=== PATIENT | female | born 1990 ===

== ENCOUNTER 2017-02-17 19:37 | Emergency (ER) | payer OTHER ==
[2017-02-17 20:07] VITALS: BP 155/60; PULSE 98; RESP 18; TEMP 99.4; O2SAT 97
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
--- NOTE | 2017-02-18 17:33 | RAD ---
PROCEDURE: Left Hip X-ray Radiographs. HISTORY: left hip COMPARISON: Comparison is made to the previous CT of the abdomen and pelvis dated 10/07/2015 FINDINGS: BONES: Again seen art severe deformity at both hips. 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 JOINTS: There are severe osteoarthritic changes at the right hip joint associated with severe narrowing of the joint space. There is also moderate to severe narrowing of the joint space in the left hip. SOFT TISSUES: Normal. OTHER FINDINGS: None. IMPRESSION: Severe bilateral coxa vara deformity. Severe deformity of the right femoral head. Advanced secondary osteoarthritis at the right hip and [id number] secondary osteoarthritic changes at the left hip joint
== END 2017-02-17 23:36 | disposition home or self-care (01) ==
LOC: H.ER 19:37
DX: M54.2 Cervicalgia (principal); S73.102A Unspecified sprain of left hip, initial encounter; S09.90XA Unspecified injury of head, initial encounter; V49.59XA Passenger injured in collision with other motor vehicles in traffic accident, initial encounter; Y92.410 Unspecified street and highway as the place of occurrence of the external cause

== ENCOUNTER 2017-04-15 06:49 | Observation (INO) | payer OTHER ==
[2017-04-15 06:59] VITALS: BP 120/66; RESP 16; TEMP 98; O2SAT 98
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
[2017-04-15 08:11] LABS: BASO # 0.1 K/uL (0.0-0.2); BASO % 0.7 % (0.0-2.0); EOS # 0.1 K/uL (0.0-0.7); EOS % 1.2 % (0.0-4.0); HEMOGLOBIN 16.2 g/dL (12.0-16.0); LYMPH # 2.1 K/uL (1.0-4.3); LYMPH % 25.4 % (20.0-40.0); MEAN CELL VOLUME 81.1 fl (81.0-99.0); MEAN CORPUSCULAR HEMOGLOBIN 28.2 pg (27.0-31.0); MEAN CORPUSCULAR HGB CONC 34.7 g/dL (33.0-37.0); MEAN PLATELET VOLUME 8.4 fl (7.2-11.7); MONO # 0.6 K/uL (0.0-0.8); MONO % 7.4 % (0.0-10.0); NEUT # 5.3 K/uL (1.8-7.0); NEUT % 65.3 % (50.0-75.0); NRBC % 0.3 % (0.0-0.0); RBC 5.74 Mil/uL (3.80-5.20); RED CELL DISTRIBUTION WIDTH 14.1 % (11.5-14.5); WHITE BLOOD COUNT 8.1 K/uL (4.8-10.8)
[2017-04-15 08:20] LABS: BLOOD UREA NITROGEN 12 mg/dl (7-17); CALCIUM 10.4 mg/dL (8.4-10.2); GFR AFRICAN-AMERICAN > 60; GFR NON-AFRICAN AMERICAN > 60
[2017-04-15] MEDS ORDERED: Sodium Chloride 0.9% 1,000 ML IV STA (08:32)
--- NOTE | 2017-04-15 10:22 | RAD ---
HISTORY: chest pain COMPARISON: 02/06/2015. TECHNIQUE: Chest PA and lateral FINDINGS: LUNGS: Re- demonstrated is a 6.7 mm granuloma right upper lobe. . Persistent elevation right hemidiaphragm could be due to eventration. No active disease. No acute infiltrates seen PLEURA: No significant pleural effusion identified. No pneumothorax apparent. CARDIOVASCULAR: Normal. OSSEOUS STRUCTURES: No significant abnormalities. VISUALIZED UPPER ABDOMEN: Normal. OTHER FINDINGS: None. IMPRESSION: No active disease or acute infiltrates. Calcified granuloma right upper lobe again noted
[2017-04-15] MEDS ORDERED: Sodium Chloride 0.9% 50 ML IV ONE (10:49)
[2017-04-15] MEDS ORDERED: Iodixanol 320 MG/ML 100 ML BOTTLE IV ONE (10:49)
--- NOTE | 2017-04-15 11:54 | CT ---
PROCEDURE: CT Chest with contrast (Pulmonary Angiogram) HISTORY: chest pain COMPARISON: No prior study available for comparison however correlation made with concurrent chest radiograph. Comparison also made with CT scan abdomen pelvis 10/07/2015 which imaged both lung bases. TECHNIQUE: Axial computed tomography images were obtained of the chest in the pulmonary arterial phase of enhancement. Coronal and sagittal reformatted images were created and reviewed. Intravenous contrast dose: 90 cc Visipaque 320 contrast material Radiation dose: Total exam DLP = 386.49 mGy-cm. This CT exam was performed using one or more of the following dose reduction techniques: Automated exposure control, adjustment of the mA and/or kV according to patient size, and/or use of iterative reconstruction technique. FINDINGS: PULMONARY ARTERIES: Study is limited due to suboptimal opacification of the pulmonary arteries and large body habitus. . Visualized pulmonary trunk, lobar, segmental and proximal subsegmental branches of the pulmonary arteries appear relatively well opacified. No definitive filling defects seen to suggest acute central pulmonary embolus. Pulmonary trunk measures approximately 2.78 cm. AORTA: No acute findings. No thoracic aortic aneurysm. Ascending thoracic aorta measures approximately 3.1 cm and descending thoracic aorta measures approximate 1.9 cm. LUNGS: Re- demonstrated is a 6.2 mm calcified granuloma right upper lobe. No acute consolidation. PLEURAL SPACES: Unremarkable. No effusion or pneuomothorax. Marked elevation right hemidiaphragm likely due to eventration. HEART: Unremarkable. No cardiomegaly. No significant pericardial effusion no. LYMPH NODES: No lymphadenopathy. BONES, CHEST WALL: Unremarkable. Minor multilevel degenerative spondylosis of the thoracic spine. OTHER FINDINGS: Small hiatal hernia. . Marked on hepatomegaly less well seen on this study compared the prior CT scan of the abdomen and pelvis. IMPRESSION: Limited study described. No evidence of acute central pulmonary embolus. No infiltrates. Stable calcified granuloma right upper lobe. Elevation right hemidiaphragm likely due to eventration. Hepatomegaly.
[2017-04-15 14:21] VITALS: PULSE 75
--- NOTE | 2017-04-16 12:08 | CARD ---
APPROVED REPORT EKG Measurement Heart [id number] <Conclusion> Normal sinus rhythm Normal ECG
== END 2017-04-15 14:02 | disposition home or self-care (01) ==
LOC: H.ER 06:49 → H.EROBSV 10:11
PROVIDERS: ADMIT Emergency Medicine; ATTEND Emergency Medicine
DX: R07.9 Chest pain, unspecified (principal); E11.40 Type 2 diabetes mellitus with diabetic neuropathy, unspecified; I10 Essential (primary) hypertension; Z82.49 Family history of ischemic heart disease and other diseases of the circulatory system

== ENCOUNTER 2017-08-19 01:34 | Emergency (ER) | payer SELFPAY ==
[2017-08-19 02:15] VITALS: RESP 18
[2017-08-19 02:20] VITALS: BP 147/71; PULSE 87; TEMP 99; O2SAT 98
[2017-08-19] MEDS ORDERED: Sodium Chloride 0.9% 1,000 ML IV STA (02:26)
--- NOTE | 2017-08-19 02:43 | ED PDOC ---
HPI: Abdomen Time Seen by Provider: 08/19/17 02:21 Chief Complaint (Nursing): Lower Extremity Problem/Injury Chief Complaint (Provider): abdominal pain History Per: Patient History/Exam Limitations: no limitations Onset/Duration Of Symptoms: Days (x3) Current Symptoms Are (Timing): Still Present Additional Complaint(s): 27 year old obese female who presents to the emergency department with a complaint of on and off RUQ pain associated with hard stools and nausea ongoing for 3 days. Patient stated that abdominal pain is exasperated after eating and drinking. Denied any fever, chills, vomiting, difficulty urinating or bloody urine. PMD: Yoko Noyola MD Past Medical History Reviewed: Historical Data, Nursing Documentation, Vital Signs Vital Signs: Last Vital Signs Temp 99.0 F 08/19/17 02:06 Pulse 87 08/19/17 02:06 Resp 18 08/19/17 02:06 BP 147/71 08/19/17 02:06 Pulse Ox 98 08/19/17 04:40 - Medical History PMH: Anxiety, Arthritis, Depression, Diabetes, HTN - Surgical History Surgical History: - Family History Family History: States: Unknown Family Hx - Social History Current smoker - smoking cessation education provided: No Alcohol: Occasional - Home Medications Home Medications: Ambulatory Orders Medication Instructions Recorded Dicyclomine [Bentyl] 20 mg PO Q12 PRN #20 tab 10/07/15 Escitalopram Oxalate [Lexapro] 10/07/15 Gabapentin [Gabapentin] 1 tab PO BID 10/07/15 Insulin Glargine, Recombina 40 units SQ HS 10/07/15 [Lantus] Insulin Lispro [Humalog] SQ ACHS 10/07/15 Metronidazole [Flagyl] 250 mg PO BID #14 tablet 10/07/15 Ondansetron ODT [Zofran ODT] 4 mg PO Q6H PRN #16 odt 10/07/15 Ibuprofen [Motrin] 400 mg PO Q6 #30 tab 04/28/16 Cephalexin [Keflex] 500 mg PO Q6 #27 capsule 08/18/16 Cyclobenzaprine [Flexeril] 5 mg PO TID #6 tab 04/15/17 Ibuprofen [Motrin] 600 mg PO Q6 #20 tab 04/15/17 Famotidine [Pepcid] 20 mg PO BID #20 tab 12/22/17 Nitrofurantoin Macrocrystals 100 mg PO BID 5 Days cap 08/19/17 [Macrobid] Omeprazole 20 mg PO DAILY #30 capsule. 08/19/17 - Allergies Allergies/Adverse Reactions: Allergies Allergy/AdvReac Type Severity Reaction Status Date / Time No Known Allergies Allergy Verified 08/19/17 02:06 Review of Systems ROS Statement: Except As Marked, All Systems Reviewed And Found Negative Constitutional: Negative for: Fever, Chills Gastrointestinal: Positive for: Nausea, Abdominal Pain (RUQ), Other (hard stools ). Negative for: Vomiting Genitourinary Female: Negative for: Dysuria, Hematuria Physical Exam - Reviewed Nursing Documentation Reviewed: Yes Vital Signs Reviewed: Yes - Physical Exam Appears: Positive for: Well (but obese), Non-toxic, No Acute Distress Head Exam: Positive for: ATRAUMATIC, NORMAL INSPECTION, NORMOCEPHALIC Skin: Positive for: Normal Color Eye Exam: Positive for: Normal appearance ENT: Positive for: Normal ENT Inspection Neck: Positive for: Normal, Painless ROM Cardiovascular/Chest: Positive for: Regular Rate, Rhythm, Chest Non Tender Respiratory: Positive for: Normal Breath Sounds. Negative for: Decreased Breath Sounds, Respiratory Distress Gastrointestinal/Abdominal: Positive for: Soft, Tenderness (RUQ mildy; neg for Robert's sign). Negative for: Normal Exam Neurologic/Psych: Positive for: Alert (x3), Oriented - Laboratory Results Result Diagrams: 08/19/17 02:54 08/19/17 02:54 - ECG O2 Sat by Pulse Oximetry: 98 (RA) Pulse Ox Interpretation: Normal Medical Decision Making Medical Decision Making: Initial Impression: Gallstones vs. colitis vs. appendicitis vs. constipation Initial Plan: * CT ABD/pelvis with IV contrast * CMP * Lipase * Urine * CBC * NS 1,000ml IV per 1,000mls/hr * Reeglan 10mg IVPB * Toradol 30mg IVP * Urinalysis ____ Time: 434 --CT ABD/pelvis FINDINGS: Lower thorax: No acute findings. ABDOMEN: Liver: Unremarkable. No mass. Gallbladder and bile ducts: Unremarkable. No calcified stones. No ductal dilation. Pancreas: Unremarkable. No mass. No ductal dilation. Spleen: Unremarkable. No splenomegaly. Adrenals: Unremarkable. No mass. Kidneys and ureters: Unremarkable. No solid mass. No hydronephrosis. Stomach and bowel: Unremarkable. No obstruction. No mucosal thickening. Appendix: A normal appendix is identified. PELVIS: Bladder: Unremarkable. No mass. Reproductive: Unremarkable as visualized. ABDOMEN and PELVIS: Intraperitoneal space: Unremarkable. No free air. No significant fluid collection. Bones/joints: No acute fracture. No dislocation. Marked deformity of both hips bilaterally with degenerative changes. Soft tissues: Unremarkable. Vasculature: Unremarkable. No abdominal aortic aneurysm. Lymph nodes: Unremarkable. No enlarged lymph nodes. IMPRESSION: No acute findings. Pt. is feeling better, results provided. Told to berenice vargas/ Barbara Noyola next week for checkup, return precautions discussed. Scribe Attestation: Documented by Maria A Yang, acting as a scribe for Clyde Aceves MD. Provider Scribe Attestation: All medical record entries made by the Scribe were at my direction and personally dictated by me. I have reviewed the chart and agree that the record accurately reflects my personal performance of the history, physical exam, medical decision making, and the department course for this patient. I have also personally directed, reviewed, and agree with the discharge instructions and disposition. Disposition - Clinical Impression Clinical Impression: UTI (urinary tract infection), Abdominal pain - Patient ED Disposition Is Patient to be Admitted: No Counseled Patient/Family Regarding: Studies Performed, Diagnosis, Need For Followup, Rx Given - Disposition Referrals: [place],Yoko Nilsa, [employer] [Primary Care Provider] - Disposition: Routine/Home Disposition Time: 04:40 Condition: IMPROVED Prescriptions: Famotidine [Pepcid] 20 mg PO BID #20 tab Nitrofurantoin Macrocrystals [Macrobid] 100 mg PO BID 5 Days cap Omeprazole 20 mg PO DAILY #30 capsule.dr Instructions: Urinary Tract Infection in Women (ED), Acute Abdominal Pain (ED) Forms: [email or web address] (Korean)
[2017-08-19 03:09] LABS: BASO % 0.6 % (0.0-2.0); EOS # 0.1 K/uL (0.0-0.7); EOS % 1.6 % (0.0-4.0); HEMATOCRIT 41.2 % (34.0-47.0); LYMPH # 2.9 K/uL (1.0-4.3); LYMPH % 34.6 % (20.0-40.0); MEAN CELL VOLUME 82.1 fl (81.0-99.0); MEAN CORPUSCULAR HEMOGLOBIN 27.6 pg (27.0-31.0); MEAN CORPUSCULAR HGB CONC 33.6 g/dL (33.0-37.0); MEAN PLATELET VOLUME 8.1 fl (7.2-11.7); MONO # 0.7 K/uL (0.0-0.8); MONO % 8.7 % (0.0-10.0); NEUT # 4.5 K/uL (1.8-7.0); NEUT % 54.5 % (50.0-75.0); NRBC % 0.1 % (0.0-0.0); RED CELL DISTRIBUTION WIDTH 13.9 % (11.5-14.5); WHITE BLOOD COUNT 8.3 K/uL (4.8-10.8)
[2017-08-19 03:25] LABS: ALB/GLOB RATIO 1.2 (1.0-2.1); ALKALINE PHOSPHATASE 146 U/L (38-126); ALT/SGPT 78 U/L (9-52); AST/SGOT 39 U/L (14-36); BLOOD UREA NITROGEN 14 mg/dl (7-17); CALCIUM 9.4 mg/dL (8.4-10.2); CARBON DIOXIDE 26 mmol/L (22-30); CHLORIDE 100 mmol/L (98-107); GFR AFRICAN-AMERICAN > 60; GLUCOSE,RANDOM 255 mg/dL (65-105); LIPASE 111 U/L (23-300); POTASSIUM 3.6 MMOL/L (3.6-5.0); SODIUM 141 mmol/l (132-148); TOTAL PROTEIN 8.2 G/DL (6.3-8.2)
[2017-08-19 03:41] LABS: URINE COLOR YELLOW (YELLOW)
[2017-08-19 03:42] LABS: RBC URINE 2 /hpf (0-3); URINE BILIRUBIN NEGATIVE (NEGATIVE); URINE BLOOD NEGATIVE (NEGATIVE); URINE GLUCOSE (UA) NEGATIVE (Normal); URINE KETONE NEGATIVE (NEGATIVE); URINE LEUKOCYTE ESTERASE NEGATIVE Leu/uL (Negative); URINE PROTEIN 30 mg/dL (NEGATIVE); URINE UROBILINOGEN 0.2 mg/dL (0.2-1.0); WBC URINE 10 /hpf (0-5)
[2017-08-19 03:43] LABS: URINE BACTERIA FEW (<OCC)
[2017-08-19] MEDS ORDERED: Iohexol 300 100 ML IJ ONE (03:44)
--- NOTE | 2017-08-19 11:50 | CT ---
PROCEDURE: CT Abdomen and Pelvis with contrast HISTORY: RUQ pain, nausea COMPARISON: 10/07/2015 TECHNIQUE: Contrast dose: 95 mL Omnipaque 300 Radiation dose: Total exam DLP = 1028.51 mGy-cm. This CT exam was performed using one or more of the following dose reduction techniques: Automated exposure control, adjustment of the mA and/or kV according to patient size, and/or use of iterative reconstruction technique. FINDINGS: LOWER THORAX: Unremarkable. LIVER: Hepatomegaly. The liver measures 22.7 cm craniocaudal. Smooth contour. No mass. No biliary dilatation. GALLBLADDER AND BILE DUCTS: Unremarkable. PANCREAS: Unremarkable. No gross lesion or ductal dilatation. SPLEEN: Unremarkable. ADRENALS: Unremarkable. No mass. KIDNEYS AND URETERS: Unremarkable. No hydronephrosis. No solid mass. VASCULATURE: Unremarkable. No aortic aneurysm. BOWEL: Sigmoid diverticulosis without evidence of diverticulitis. Mural thickening previously appreciated in a segment of sigmoid colon on examination of 10/07/2015 is inadequately evaluated in the absence of oral contrast opacification. There is circumferential mural thickening of a segment of jejunum consistent with nonspecific enteritis. There is no bowel obstruction. APPENDIX: Normal appendix. PERITONEUM: Unremarkable. No free fluid. No free air. LYMPH NODES: Unremarkable. No enlarged lymph nodes. BLADDER: Nondistended REPRODUCTIVE: Normal uterus BONES: Severe osteoarthritis of right hip with deformity of humeral head and remodeling of acetabulum. Osteoarthritis of left hip. Possible left coxa vara deformity. No acute fracture. OTHER FINDINGS: None. IMPRESSION: Findings consistent with nonspecific enteritis involving proximal jejunum. No evidence of diverticulitis. Sigmoid diverticulosis. No evidence of appendicitis. Hepatomegaly. Additional nonacute findings as above.
== END 2017-08-19 05:10 | disposition home or self-care (01) ==
LOC: H.ER 01:34
DX: N39.0 Urinary tract infection, site not specified (principal); R10.11 Right upper quadrant pain; E11.9 Type 2 diabetes mellitus without complications; F32.9 Major depressive disorder, single episode, unspecified; F41.9 Anxiety disorder, unspecified; I10 Essential (primary) hypertension; Z79.4 Long term (current) use of insulin
CPT/HCPCS: 74177; 80053; 81003; 81025; 83690; 85025; 96374; 99284; J1885; J2765; J7040; Q9967

== ENCOUNTER 2018-04-09 03:26 | Emergency (ER) | payer SELFPAY ==
[2018-04-09 03:46] VITALS: RESP 18
--- NOTE | 2018-04-09 04:11 | ED PDOC ---
HPI: Chest Pain Time Seen by Provider: 04/09/18 03:40 Chief Complaint (Nursing): Chest Pain Chief Complaint (Provider): Chest pain History Per: Patient History/Exam Limitations: no limitations Onset/Duration Of Symptoms: Days Current Symptoms Are (Timing): Still Present Context: Other (Anxiety) Severity: Moderate Quality: "Pain" Associated Symptoms: Nausea, Other (SOB, Hand numbness, diarrhea) Modifying Factors: None Exacerbating Factors: None Additional History Per: Patient Additional Complaint(s): 28 y/o with Hx of IDDM, hTN and anxiety presents with c/o CP for 3 days that comes and goes and is retrosternal. Since 11 pm last night it got worse and has been associated with mild SOB, 4 episodes of NBNM diarrhea and b/L finger numbness. Patient states thast she has been feeling very anxious recently because her father had a heart attack 1 week ago. She states that she has been using her meds as prescribed including insulin Past Medical History Vital Signs: Last Vital Signs Temp 98.0 F 04/09/18 03:30 Pulse 81 04/09/18 03:30 Resp 18 04/09/18 03:30 BP 158/85 H 04/09/18 03:30 Pulse Ox 99 04/09/18 04:16 - Medical History PMH: Anxiety, Arthritis, Depression, Diabetes, HTN - Surgical History Surgical History: - Family History Family History: States: Unknown Family Hx - Social History Drugs: Denies - Home Medications Home Medications: Ambulatory Orders Medication Instructions Recorded Dicyclomine [Bentyl] 20 mg PO Q12 PRN #20 tab 10/07/15 Escitalopram Oxalate [Lexapro] 10/07/15 Gabapentin [Gabapentin] 1 tab PO BID 10/07/15 Insulin Glargine, Recombina 40 units SQ HS 10/07/15 [Lantus] Insulin Lispro [Humalog] SQ ACHS 10/07/15 Metronidazole [Flagyl] 250 mg PO BID #14 tablet 10/07/15 Ondansetron ODT [Zofran ODT] 4 mg PO Q6H PRN #16 odt 10/07/15 Ibuprofen [Motrin] 400 mg PO Q6 #30 tab 04/28/16 Cephalexin [Keflex] 500 mg PO Q6 #27 capsule 08/18/16 Cyclobenzaprine [Flexeril] 5 mg PO TID #6 tab 04/15/17 Ibuprofen [Motrin] 600 mg PO Q6 #20 tab 04/15/17 Famotidine [Pepcid] 20 mg PO BID #20 tab 08/19/17 Nitrofurantoin Macrocrystals 100 mg PO BID 5 Days cap 08/19/17 [Macrobid] Omeprazole 20 mg PO DAILY #30 capsule. 08/19/17 Ondansetron ODT [Zofran ODT] 4 mg PO Q6 PRN #8 odt 04/09/18 - Allergies Allergies/Adverse Reactions: Allergies Allergy/AdvReac Type Severity Reaction Status Date / Time No Known Allergies Allergy Verified 04/09/18 03:40 KIRK Risk Score for UA/NSTEMI - KIRK Risk Score Age > 64: NO 3 or more CAD Risk Factors: NO Known CAD (Stenosis greater than 50%): NO Aspirin use in past 7 days: NO Severe Angina: NO EKG ST changes greater than 0.5mm: NO Positive Cardiac Marker: NO KIRK Score: 0 Risk %: 5% Review of Systems ROS Statement: Except As Marked, All Systems Reviewed And Found Negative Cardiovascular: Positive for: Chest Pain Respiratory: Positive for: Shortness of Breath Gastrointestinal: Positive for: Nausea Neurological: Positive for: Numbness Psych: Positive for: Anxiety Physical Exam - Physical Exam Appears: Positive for: Non-toxic, No Acute Distress Skin: Positive for: Warm. Negative for: Normal Color (Acantosis nigricans lesions) Eye Exam: Positive for: EOMI Cardiovascular/Chest: Positive for: Regular Rate, Rhythm. Negative for: Gallop , Murmur Respiratory: Positive for: Normal Breath Sounds. Negative for: Decreased Breath Sounds, Crackles, Rales, Rhonchi, Wheezing, Respiratory Distress Gastrointestinal/Abdominal: Positive for: Soft, Tenderness (mild epigastric). Negative for: Distended, Guarding, Rebound Extremity: Positive for: Normal ROM, Capillary Refill (<3). Negative for: Pedal Edema Neurologic/Psych: Positive for: Alert, Oriented. Negative for: Motor/Sensory Deficits, Aphasia, Facial Droop - Laboratory Results Result Diagrams: 04/09/18 04:48 04/09/18 04:48 - ECG O2 Sat by Pulse Oximetry: 99 - Progress ED Course And Treament: Patient received Pepcid, Zofran and CBC, BMP, trop were ordered Labs came back unremarkable Patient c/o persistent pain but associated symptoms resolved. Toradol 30 mg IV given Patient revaluated and remained stable during her ER stay. Kirk score 0 Unlikely cardiac Poss anxiety Stable to DC home and F/U as outpatient ER precautions given Medical Decision Making Medical Decision Makin28 y/o F with Hx of IDDM, HTN and anxiety presents with c/o CP Atypical Chest pain with nausea Poss anxiety VS stable. EKG sinus rhythm Tropx1 CBC BMP Pepcid IV once Zofran IV once Numbness B/L hands poss anxiety Udip Disposition - Clinical Impression Clinical Impression: Atypical chest pain - Disposition Disposition Time: 06:50 Condition: STABLE Prescriptions: Ondansetron ODT [Zofran ODT] 4 mg PO Q6 PRN #8 odt PRN Reason: Nausea/Vomiting Instructions: Chest Pain That Is Not Caused by the Heart (DC) Forms: [employer] (Tuvaluan)
[2018-04-09 04:53] LABS: BASO # 0.1 K/uL (0.0-0.2); EOS # 0.2 K/uL (0.0-0.7); EOS % 2.2 % (0.0-4.0); HEMOGLOBIN 13.9 g/dL (12.0-16.0); LYMPH # 2.6 K/uL (1.0-4.3); LYMPH % 35.1 % (20.0-40.0); MEAN CELL VOLUME 81.6 fl (81.0-99.0); MEAN CORPUSCULAR HEMOGLOBIN 27.4 pg (27.0-31.0); MEAN CORPUSCULAR HGB CONC 33.6 g/dL (33.0-37.0); MONO # 0.6 K/uL (0.0-0.8); MONO % 8.1 % (0.0-10.0); NEUT % 53.6 % (50.0-75.0); NRBC % 0.1 % (0.0-0.0); RBC 5.07 Mil/uL (3.80-5.20); RED CELL DISTRIBUTION WIDTH 14.1 % (11.5-14.5); WHITE BLOOD COUNT 7.5 K/uL (4.8-10.8)
[2018-04-09 05:02] LABS: CALCIUM 9.2 mg/dL (8.4-10.2); GFR AFRICAN-AMERICAN > 60; GFR NON-AFRICAN AMERICAN > 60
[2018-04-09 05:16] LABS: BLOOD UREA NITROGEN 12 mg/dl (7-17)
[2018-04-09 06:57] VITALS: BP 142/80; PULSE 82; TEMP 98.2; O2SAT 100
== END 2018-04-09 06:55 | disposition home or self-care (01) ==
LOC: H.ER 03:26
DX: R07.89 Other chest pain (principal); E11.9 Type 2 diabetes mellitus without complications; Z79.4 Long term (current) use of insulin; F32.9 Major depressive disorder, single episode, unspecified; F41.9 Anxiety disorder, unspecified; I10 Essential (primary) hypertension
CPT/HCPCS: 80048; 84484; 85025; 96374; 96375; 99284; J2405

== ENCOUNTER 2018-07-24 04:12 | Emergency (ER) | payer MEDICAID ==
[2018-07-24 04:33] VITALS: RESP 16
[2018-07-24] MEDS ORDERED: Iohexol 240 (50 ml) PO ONE (04:59)
[2018-07-24] MEDS ORDERED: Sodium Chloride 0.9% 1,000 ML IV STA (04:59)
[2018-07-24] MEDS ORDERED: Morphine 4 MG/ML VIAL IV ONE (04:59)
--- NOTE | 2018-07-24 05:29 | ED PDOC ---
HPI: Abdomen Time Seen by Provider: 07/24/18 04:32 Chief Complaint (Nursing): Abdominal Pain Chief Complaint (Provider): Abdominal Pain History Per: Patient History/Exam Limitations: no limitations Onset/Duration Of Symptoms: Hrs (x 4) Current Symptoms Are (Timing): Still Present Location Of Pain/Discomfort: RUQ, RLQ Quality Of Discomfort: "Pain" Associated Symptoms: Back Pain Additional Complaint(s): 28 year old female with a history of diabetes and hypertension presents to the ED with right sided abdominal pain radiating to her right flank for 4 hours. Patient reports that pain is so severe that it jolted her out of her sleep. It is associated with sweats, nausea, diarrhea and loss of appetite. She took no medications for pain prior to arrival. Denies fever, vomiting and other medical complaints. PMD: Dr. Noyola Past Medical History Reviewed: Historical Data, Nursing Documentation, Vital Signs Vital Signs: Last Vital Signs Temp 98.4 F 07/24/18 04:28 Pulse 99 H 07/24/18 04:28 Resp 16 07/24/18 04:28 BP 134/92 H 07/24/18 04:28 Pulse Ox 98 07/24/18 04:28 - Medical History PMH: Anxiety, Arthritis, Depression, Diabetes, HTN - Surgical History Surgical History: - Family History Family History: States: Unknown Family Hx - Social History Current smoker - smoking cessation education provided: No Alcohol: None Drugs: Denies - Home Medications Home Medications: Ambulatory Orders Medication Instructions Recorded Dicyclomine [Bentyl] 20 mg PO Q12 PRN #20 tab 10/07/15 Escitalopram Oxalate [Lexapro] 10/07/15 Gabapentin 1 tab PO BID 10/07/15 Insulin Glargine, Recombina 40 units SQ HS 10/07/15 [Lantus] Insulin Lispro [Humalog] SQ ACHS 10/07/15 Metronidazole [Flagyl] 250 mg PO BID #14 tablet 10/07/15 Ondansetron ODT [Zofran ODT] 4 mg PO Q6H PRN #16 odt 10/07/15 Ibuprofen [Motrin] 400 mg PO Q6 #30 tab 04/28/16 Cephalexin [Keflex] 500 mg PO Q6 #27 capsule 08/18/16 Cyclobenzaprine [Flexeril] 5 mg PO TID #6 tab 04/15/17 Ibuprofen [Motrin] 600 mg PO Q6 #20 tab 04/15/17 Famotidine [Pepcid] 20 mg PO BID #20 tab 08/19/17 Nitrofurantoin Macrocrystals 100 mg PO BID 5 Days cap 08/19/17 [Macrobid] RX: Omeprazole 20 mg PO DAILY #30 capsule. 08/19/17 Ondansetron ODT [Zofran ODT] 4 mg PO Q6 PRN #8 odt 04/09/18 - Allergies Allergies/Adverse Reactions: Allergies Allergy/AdvReac Type Severity Reaction Status Date / Time No Known Allergies Allergy Verified 07/24/18 04:28 Review of Systems ROS Statement: Except As Marked, All Systems Reviewed And Found Negative Constitutional: Positive for: Sweats Gastrointestinal: Positive for: Nausea, Abdominal Pain. Negative for: Vomiting, Diarrhea Musculoskeletal: Positive for: Back Pain Physical Exam - Reviewed Nursing Documentation Reviewed: Yes Vital Signs Reviewed: Yes - Physical Exam Appears: Positive for: Non-toxic, No Acute Distress Head Exam: Positive for: ATRAUMATIC, NORMAL INSPECTION, NORMOCEPHALIC Skin: Positive for: Normal Color, Warm, Dry Eye Exam: Positive for: EOMI, Normal appearance, PERRL ENT: Positive for: Normal ENT Inspection Neck: Positive for: Normal, Painless ROM, Supple Cardiovascular/Chest: Positive for: Regular Rate, Rhythm. Negative for: Murmur Respiratory: Positive for: Normal Breath Sounds. Negative for: Respiratory Distress Gastrointestinal/Abdominal: Positive for: Soft (otherwise), Tenderness (RUQ and right flank tenderness) Extremity: Positive for: Normal ROM. Negative for: Deformity Neurologic/Psych: Positive for: Alert, Oriented. Negative for: Motor/Sensory Deficits - ECG O2 Sat by Pulse Oximetry: 98 (RA) Pulse Ox Interpretation: Normal Medical Decision Making Medical Decision Makin:59 Initial Plan: abdominal pain rule out cholecystitis, appendicitis, electrolyte abnormality, uti --CT Abd & Pelvis w contrast --Omnipaque 50 ml PO --CMP --CBC --Morphine 4 mg IV --NS IV --Zofran Inj 4 mg IVP --Urine dip --UA --Urine cx [address] shirley pending workup Scribe Attestation: Documented by Karie Wong, acting as a scribe for Blair Garcia MD Provider Scribe Attestation: All medical record entries made by the Scribe were at my direction and personally dictated by me. I have reviewed the chart and agree that the record accurately reflects my personal performance of the history, physical exam, medical decision making, and the department course for this patient. I have also personally directed, reviewed, and agree with the discharge instructions and disposition. Disposition - Clinical Impression Clinical Impression: Abdominal discomfort - Patient ED Disposition Is Patient to be Admitted: Transfer of Care Counseled Patient/Family Regarding: Studies Performed, Diagnosis, Need For Followup - Disposition Disposition: Transfer of Care Disposition Time: 07:00 Condition: STABLE Forms: [employer] ([place]) Patient Signed Over To: Neel Shirley
[2018-07-24] MEDS ORDERED: Iohexol 240 (50 ml) ONE (05:32)
[2018-07-24] MEDS ORDERED: Morphine 4 MG/ML VIAL ONE (05:33)
[2018-07-24 05:50] LABS: SQUAMOUS EPITHIAL < 1 /hpf (0-5); URINE BILIRUBIN NEGATIVE (NEGATIVE); URINE BLOOD NEGATIVE (NEGATIVE); URINE CLARITY CLEAR (Clear); URINE COLOR YELLOW (YELLOW); URINE GLUCOSE (UA) >=500 mg/dL (Normal); URINE LEUKOCYTE ESTERASE NEG Leu/uL (Negative); URINE PROTEIN 30 mg/dL (NEGATIVE); URINE UROBILINOGEN 0.2-1.0 mg/dL (0.2-1.0)
[2018-07-24 05:55] LABS: ALB/GLOB RATIO 1.1 (1.0-2.1); ALBUMIN 4.2 g/dL (3.5-5.0); ALT/SGPT 54 U/L (9-52); AST/SGOT 42 U/L (14-36); BLOOD UREA NITROGEN 14 mg/dl (7-17); CALCIUM 9.2 mg/dL (8.4-10.2); GFR NON-AFRICAN AMERICAN > 60
[2018-07-24 06:05] LABS: BASO # 0.1 K/uL (0.0-0.2); BASO % 0.6 % (0.0-2.0); EOS # 0.1 K/uL (0.0-0.7); EOS % 1.3 % (0.0-4.0); HEMOGLOBIN 14.3 g/dL (12.0-16.0); LYMPH # 2.4 K/uL (1.0-4.3); LYMPH % 25.9 % (20.0-40.0); MEAN CELL VOLUME 80.6 fl (81.0-99.0); MEAN CORPUSCULAR HEMOGLOBIN 27.4 pg (27.0-31.0); MEAN PLATELET VOLUME 8.3 fl (7.2-11.7); MONO # 0.7 K/uL (0.0-0.8); MONO % 7.2 % (0.0-10.0); NRBC % 0.2 % (0.0-0.0); RBC 5.21 Mil/uL (3.80-5.20); WHITE BLOOD COUNT 9.3 K/uL (4.8-10.8)
[2018-07-24 06:13] LABS: URINE BACTERIA FEW (<OCC)
[2018-07-24] MEDS ORDERED: Potassium Chloride 20 mEq ER Tab PO ONE ×2 (06:39→07:54)
[2018-07-24] MEDS ORDERED: Iohexol 300 100 ML IJ ONE (08:39)
[2018-07-24] MEDS ORDERED: Sodium Chloride 0.9% 50 ML IV ONE (08:39)
--- NOTE | 2018-07-24 09:16 | CT ---
Date of service: 07/24/2018 PROCEDURE: CT Abdomen and Pelvis with contrast HISTORY: abd pain r sided COMPARISON: Abdomen pelvis CT with contrast 08/19/2017. TECHNIQUE: Following oral and intravenous contrast administration, a CT examination of the abdomen and pelvis performed from the domes of the diaphragms to the symphysis pubis with reformatted datasets provided not only axial but also sagittal and coronal series. Coronal and sagittal reformats were generated. Contrast dose: Omnipaque 300, 99 cc Radiation dose: Total exam DLP = 982.77 mGy-cm. This CT exam was performed using one or more of the following dose reduction techniques: Automated exposure control, adjustment of the mA and/or kV according to patient size, and/or use of iterative reconstruction technique. FINDINGS: LOWER THORAX: Elevated right hemidiaphragm reiterated. No infiltrate pleural or pericardial effusion appreciable once again. LIVER: Diminished attenuation is reiterated throughout the liver compatible with hepatic steatosis. No interval discrete mass or intrahepatic biliary dilatation is identified. GALLBLADDER AND BILE DUCTS: Gallbladder distention appears moderate once again without radiodense cholelithiasis, mural thickening or pericholecystic fluid collection at this time. PANCREAS: Unremarkable. No gross lesion or ductal dilatation. SPLEEN: Unremarkable. ADRENALS: Unremarkable. No mass. KIDNEYS AND URETERS: Unremarkable. No hydronephrosis. No solid mass. VASCULATURE: Unremarkable. No aortic aneurysm. No aortic atherosclerotic calcification or mural plaque present. BOWEL: Stomach is collapsed and limited evaluation. No bowel obstruction or local small large-bowel reactive change. Proximal and mid sigmoid mural thickening is evident in a pattern suspicious for segmental colitis. Consider infectious or inflammatory causes. Infrequent diverticula are seen at the sigmoid colon and diverticulitis is a possibility. No free intra peritoneal gas collection or abscess. APPENDIX: Normal appendix. PERITONEUM: Unremarkable. No free fluid. No free air. LYMPH NODES: Unremarkable. No enlarged lymph nodes. BLADDER: Distended but otherwise unremarkable appearing. REPRODUCTIVE: Unremarkable. BONES: Gross right and moderate to severe left degenerative joint changes seen at the bilateral hips with little if any residual right femoral head remaining. OTHER FINDINGS: None. IMPRESSION: 1. Pattern suspicious for proximal to mid sigmoid segmental colitis, possibly diverticulitis. No abscess or free intra peritoneal gas collection. Clinical correlation and follow-up lower endoscopy recommended when feasible. 2. Hepatic steatosis reiterated. 3. Elevated right hemidiaphragm reiterated. 4. Gross right hip osteoarthritis with mid minimal residual right femoral head and moderate to severe osteoarthritis left hip joint identified.
--- NOTE | 2018-07-24 09:41 | ED PDOC ---
- Laboratory Results Result Diagrams: 07/24/18 05:25 07/24/18 05:25 - ECG O2 Sat by Pulse Oximetry: 98 (RA) Disposition - Clinical Impression Clinical Impression: Abdominal discomfort, Diverticulitis - POA Present On Arrival: None - Disposition Referrals: [facility] [Outside] Salomón Smith MD [Staff Provider] - Disposition: Routine/Home Disposition Time: 09:39 Condition: FAIR Prescriptions: Ciprofloxacin HCl [Cipro] 500 mg PO BID #20 tab Dicyclomine [Dicyclomine HCl] 10 mg PO Q8 #10 cap Metronidazole [Flagyl] 500 mg PO BID #20 tablet Instructions: Diverticulitis Forms: [employer] (Divehi)
[2018-07-24 09:55] VITALS: BP 125/80; PULSE 75; TEMP 98.2; O2SAT 99
== END 2018-07-24 09:55 | disposition home or self-care (01) ==
LOC: H.ER 04:12
DX: R10.9 Unspecified abdominal pain (principal); E11.9 Type 2 diabetes mellitus without complications; Z86.59 Personal history of other mental and behavioral disorders; I10 Essential (primary) hypertension; Z79.4 Long term (current) use of insulin; Z79.899 Other long term (current) drug therapy
CPT/HCPCS: 74177; 80053; 81003; 81025; 82948; 85025; 87086; 96360; 99284; J2270; J2405; J7030; Q9966; Q9967

== ENCOUNTER 2018-08-15 05:43 | Emergency (ER) | payer MEDICAID ==
[2018-08-15 06:08] VITALS: BP 143/80; RESP 16; TEMP 98.4; O2SAT 98
[2018-08-15] MEDS ORDERED: Alum-Mag Hydrox-Simethicone Susp (30 mL) PO ONE (06:12)
[2018-08-15] MEDS ORDERED: Albuterol-Ipratrop 3 mg / 0.5 (3 ml) UD INH STA (06:12)
[2018-08-15 06:20] VITALS: PULSE 94
--- NOTE | 2018-08-15 06:20 | ED PDOC ---
HPI: Chest Pain Time Seen by Provider: 08/15/18 05:49 Chief Complaint (Nursing): Chest Pain History Per: Patient History/Exam Limitations: no limitations Onset/Duration Of Symptoms: Hrs Current Symptoms Are (Timing): Still Present Additional Complaint(s): Hx of morbid obesity, HTN, DM presenting with chest pain, states it started at 3AM, states it felt like a burning sensation in her chest radiating up into her throat associated with cough. No fevers. No shortness of breath. No leg swelling. PMD: Dr. Barbara Noyola Past Medical History Reviewed: Historical Data, Nursing Documentation, Vital Signs Vital Signs: Last Vital Signs Temp 98.4 F 08/15/18 06:02 Pulse 95 H 08/15/18 06:02 Resp 16 08/15/18 06:02 BP 143/80 08/15/18 06:02 Pulse Ox 98 08/15/18 06:02 - Medical History PMH: Anxiety, Arthritis, Depression, Diabetes, HTN - Surgical History Surgical History: - Family History Family History: States: Unknown Family Hx - Home Medications Home Medications: Ambulatory Orders Medication Instructions Recorded Dicyclomine [Bentyl] 20 mg PO Q12 PRN #20 tab 10/07/15 Escitalopram Oxalate [Lexapro] 10/07/15 Gabapentin 1 tab PO BID 10/07/15 Insulin Glargine, Recombina 40 units SQ HS 10/07/15 [Lantus] Insulin Lispro [Humalog] SQ ACHS 10/07/15 Metronidazole [Flagyl] 250 mg PO BID #14 tablet 10/07/15 Ondansetron ODT [Zofran ODT] 4 mg PO Q6H PRN #16 odt 10/07/15 Ibuprofen [Motrin] 400 mg PO Q6 #30 tab 04/28/16 Cephalexin [Keflex] 500 mg PO Q6 #27 capsule 08/18/16 Cyclobenzaprine [Flexeril] 5 mg PO TID #6 tab 04/15/17 Ibuprofen [Motrin] 600 mg PO Q6 #20 tab 04/15/17 Famotidine [Pepcid] 20 mg PO BID #20 tab 08/19/17 Nitrofurantoin Macrocrystals 100 mg PO BID 5 Days cap 08/19/17 [Macrobid] Omeprazole 20 mg PO DAILY #30 capsule. 08/19/17 Ondansetron ODT [Zofran ODT] 4 mg PO Q6 PRN #8 odt 04/09/18 Ciprofloxacin HCl [Cipro] 500 mg PO BID #20 tab 07/24/18 Dicyclomine [Dicyclomine HCl] 10 mg PO Q8 #10 cap 07/24/18 Metronidazole [Flagyl] 500 mg PO BID #20 tablet 07/24/18 Famotidine [Pepcid] 20 mg PO BID #20 tab 08/15/18 - Allergies Allergies/Adverse Reactions: Allergies Allergy/AdvReac Type Severity Reaction Status Date / Time No Known Allergies Allergy Verified 07/24/18 04:28 KIRK Risk Score for UA/NSTEMI - KIRK Risk Score Age > 64: NO 3 or more CAD Risk Factors: NO Known CAD (Stenosis greater than 50%): NO Aspirin use in past 7 days: NO Severe Angina: NO EKG ST changes greater than 0.5mm: NO Positive Cardiac Marker: NO KIRK Score: 0 Risk %: 5% Wells Criteria for PE - Wells Criteria for Pulmonary Embolism Clinical Signs and Symptoms of DVT: No P.E is #1 Diagnosis, or Equally Likely: No Heart Rate >100: No Immobilization at least 3 days;Surgery previous 4 weeks: No Previous, objectively diagnosed PE or DVT: No Hemoptysis: No Malignancy w/treatment within 6 months, or palliative: No Total Score: 0 Review of Systems ROS Statement: Except As Marked, All Systems Reviewed And Found Negative Cardiovascular: Positive for: Chest Pain Respiratory: Positive for: Cough Physical Exam - Reviewed Nursing Documentation Reviewed: Yes Vital Signs Reviewed: Yes - Physical Exam Appears: Positive for: Well, Non-toxic, No Acute Distress Head Exam: Positive for: ATRAUMATIC, NORMAL INSPECTION, NORMOCEPHALIC Skin: Positive for: Normal Color, Warm, DRY Eye Exam: Positive for: EOMI, Normal appearance, PERRL ENT: Positive for: Normal ENT Inspection Neck: Positive for: Normal, Painless ROM Cardiovascular/Chest: Positive for: Regular Rate, Rhythm Respiratory: Positive for: CNT, Normal Breath Sounds Gastrointestinal/Abdominal: Positive for: Normal Exam, Soft. Negative for: Tenderness Back: Positive for: Normal Inspection Extremity: Positive for: Normal ROM Neurologic/Psych: Positive for: Alert, Oriented - ECG ECG Rhythm: Positive for: Normal QRS, Normal ST Segment, Sinus Rhythm Rate: 94 O2 Sat by Pulse Oximetry: 98 Pulse Ox Interpretation: Normal Medical Decision Making Medical Decision MakinAM Hx of DM, HTN, obesity presenting with atypical chest pain, cough --Patient is very well appearing, comfortable, normal vitals, with normal EKG --Chest pain does not sound cardiac in etiology, possibly GERD/gastritis related, or URI --Will give duoneb, pepcid, maalox, and check CXR 7AM --Patient feeling better --CXR negative --Will discharge with pepcid --Advised patient to followup with PMD --Very well appearing upon discharge Disposition - Clinical Impression Clinical Impression: Gastritis - Patient ED Disposition Is Patient to be Admitted: No - Disposition Referrals: Yoko Noyola APN [Advanced Practice Nurse] - Disposition: Routine/Home Disposition Time: 07:04 Condition: STABLE Prescriptions: Famotidine [Pepcid] 20 mg PO BID #20 tab Instructions: Gastritis Forms: [employer] (Kiswahili)
[2018-08-15] MEDS ORDERED: Albuterol 0.083% Inhal Sol (2.5 mg/3 mL) UD ONE (06:32)
[2018-08-15] MEDS ORDERED: Alum-Mag Hydrox-Simethicone Susp (30 mL) ONE (06:32)
--- NOTE | 2018-08-15 10:26 | RAD ---
Date of service: 08/15/2018 HISTORY: Chest pain COMPARISON: No prior. TECHNIQUE: Chest PA and lateral FINDINGS: LINES AND TUBES: None. LUNG AND PLEURA: The lungs are well inflated and clear. There is a stable calcified granuloma in the right upper lobe. No pleural effusion or pneumothorax. HEART AND MEDIASTINUM: The heart is not enlarged. No aortic atherosclerotic calcification present. The hilar and mediastinal contours are within normal limits. SKELETAL STRUCTURES: The bony structures are within normal limits for the patient's age. VISUALIZED UPPER ABDOMEN: Normal. OTHER FINDINGS: None. IMPRESSION: No active pulmonary disease.
--- NOTE | 2018-08-17 11:42 | CARD ---
APPROVED REPORT Date of service: 08/15/2018 EKG Measurement Heart [id number] <Conclusion> Normal sinus rhythm Prolonged QT Abnormal ECG
== END 2018-08-15 07:24 | disposition home or self-care (01) ==
LOC: H.ER 05:43
DX: K29.70 Gastritis, unspecified, without bleeding (principal); E11.9 Type 2 diabetes mellitus without complications; E66.01 Morbid (severe) obesity due to excess calories; F32.9 Major depressive disorder, single episode, unspecified; F41.9 Anxiety disorder, unspecified; I10 Essential (primary) hypertension; Z79.4 Long term (current) use of insulin

== ENCOUNTER 2018-08-24 14:44 | Emergency (ER) | payer SELFPAY ==
[2018-08-24 14:59] VITALS: RESP 18; O2SAT 99
--- NOTE | 2018-08-24 15:05 | ED PDOC ---
HPI: Allergic Reaction Time Seen by Provider: 08/24/18 15:02 Chief Complaint (Nursing): Allergic Reaction Past Medical History Vital Signs: Last Vital Signs Temp 98.6 F 08/24/18 14:56 Pulse 88 08/24/18 14:56 Resp 18 08/24/18 14:56 BP 139/88 08/24/18 14:56 Pulse Ox 99 08/24/18 14:56 - Medical History PMH: Anxiety, Arthritis, Depression, Diabetes, HTN - Surgical History Surgical History: - Family History Family History: States: Unknown Family Hx - Home Medications Home Medications: Ambulatory Orders Medication Instructions Recorded Dicyclomine [Bentyl] 20 mg PO Q12 PRN #20 tab 10/07/15 Escitalopram Oxalate [Lexapro] 10/07/15 Gabapentin 1 tab PO BID 10/07/15 Insulin Glargine, Recombina 40 units SQ HS 10/07/15 [Lantus] Insulin Lispro [Humalog] SQ ACHS 10/07/15 Metronidazole [Flagyl] 250 mg PO BID #14 tablet 10/07/15 Ondansetron ODT [Zofran ODT] 4 mg PO Q6H PRN #16 odt 10/07/15 Ibuprofen [Motrin] 400 mg PO Q6 #30 tab 04/28/16 Cephalexin [Keflex] 500 mg PO Q6 #27 capsule 08/18/16 Cyclobenzaprine [Flexeril] 5 mg PO TID #6 tab 04/15/17 Ibuprofen [Motrin] 600 mg PO Q6 #20 tab 04/15/17 Famotidine [Pepcid] 20 mg PO BID #20 tab 08/19/17 Nitrofurantoin Macrocrystals 100 mg PO BID 5 Days cap 08/19/17 [Macrobid] Omeprazole 20 mg PO DAILY #30 capsule. 08/19/17 Ondansetron ODT [Zofran ODT] 4 mg PO Q6 PRN #8 odt 04/09/18 Ciprofloxacin HCl [Cipro] 500 mg PO BID #20 tab 07/24/18 Dicyclomine [Dicyclomine HCl] 10 mg PO Q8 #10 cap 07/24/18 Metronidazole [Flagyl] 500 mg PO BID #20 tablet 07/24/18 Famotidine [Pepcid] 20 mg PO BID #20 tab 08/15/18 - Allergies Allergies/Adverse Reactions: Allergies Allergy/AdvReac Type Severity Reaction Status Date / Time No Known Allergies Allergy Verified 07/24/18 04:28 - ECG O2 Sat by Pulse Oximetry: 99 Disposition - Disposition
--- NOTE | 2018-08-24 15:09 | ED PDOC ---
History of Present Illness History of Present Illness: 28 y/o female presents to the ED complaining of the flu with associated nasal congestion, sore throat, coughing and body ache. HPI: Influenza Time Seen by Provider: 08/24/18 15:02 Chief Complaint: Allergic Reaction Chief Complaint (Provider): Flu-like Symptoms History Per: Patient Exam Limitations: no limitations Symptoms include: fever (tac f), bodyaches, sore throat, cough, nasal congestion Past Medical History Vital Signs: Last Vital Signs Temp 98.6 F 08/24/18 14:56 Pulse 88 08/24/18 14:56 Resp 18 08/24/18 14:56 BP 139/88 08/24/18 14:56 Pulse Ox 99 08/24/18 14:56 - Medical History PMH: Anxiety, Arthritis, Depression, Diabetes, HTN - Surgical History Surgical History: - Family History Family History: States: Unknown Family Hx - Home Medications Home Medications: Ambulatory Orders Medication Instructions Recorded Dicyclomine [Bentyl] 20 mg PO Q12 PRN #20 tab 10/07/15 Escitalopram Oxalate [Lexapro] 10/07/15 Gabapentin 1 tab PO BID 10/07/15 Insulin Glargine, Recombina 40 units SQ HS 10/07/15 [Lantus] Insulin Lispro [Humalog] SQ ACHS 10/07/15 Metronidazole [Flagyl] 250 mg PO BID #14 tablet 10/07/15 Ondansetron ODT [Zofran ODT] 4 mg PO Q6H PRN #16 odt 10/07/15 Ibuprofen [Motrin] 400 mg PO Q6 #30 tab 04/28/16 Cephalexin [Keflex] 500 mg PO Q6 #27 capsule 08/18/16 Cyclobenzaprine [Flexeril] 5 mg PO TID #6 tab 04/15/17 Ibuprofen [Motrin] 600 mg PO Q6 #20 tab 04/15/17 Famotidine [Pepcid] 20 mg PO BID #20 tab 08/19/17 Nitrofurantoin Macrocrystals 100 mg PO BID 5 Days cap 08/19/17 [Macrobid] Omeprazole 20 mg PO DAILY #30 capsule. 08/19/17 Ondansetron ODT [Zofran ODT] 4 mg PO Q6 PRN #8 odt 04/09/18 Ciprofloxacin HCl [Cipro] 500 mg PO BID #20 tab 07/24/18 Dicyclomine [Dicyclomine HCl] 10 mg PO Q8 #10 cap 07/24/18 Metronidazole [Flagyl] 500 mg PO BID #20 tablet 07/24/18 Famotidine [Pepcid] 20 mg PO BID #20 tab 08/15/18 - Allergies Allergies/Adverse Reactions: Allergies Allergy/AdvReac Type Severity Reaction Status Date / Time No Known Allergies Allergy Verified 07/24/18 04:28 - ECG O2 Sat by Pulse Oximetry: 99 Disposition - Disposition Forms: [employer] (Persian)
--- NOTE | 2018-08-24 15:39 | ED PDOC ---
HPI: Skin/Bite Injury Time Seen by Provider: 08/24/18 15:02 Chief Complaint (Nursing): Allergic Reaction Chief Complaint (Provider): Allergic Reaction History Per: Patient History/Exam Limitations: no limitations Onset/Duration Of Symptoms: Days (x7) Current Symptoms Are (Timing): Still Present Quality Of Symptoms: Itching (mild itching) Additional Complaint(s): 28 y/o female presents to the ED with a possible allergic reaction associated with mild itching to her upper lips x 2 weeks. She visited her PMD for a routine check up last week and was instructed to apply an over the counter medication for cold sores. She has been using topical ointment this week and today woke up with swelling to upper/lower lip and also mild swelling to the right side of her face. She reports mild imrovement in the symptoms since this morning. Otherwise, patient denies trouble breathing and any other complaints. Of note, Pt. has been taking losartan for htn x 6 years. PMD: Yoko Noyola Past Medical History Reviewed: Historical Data, Nursing Documentation, Vital Signs Vital Signs: Last Vital Signs Temp 98.6 F 08/24/18 14:56 Pulse 88 08/24/18 14:56 Resp 18 08/24/18 14:56 BP 139/88 08/24/18 14:56 Pulse Ox 99 08/24/18 14:56 - Medical History PMH: Anxiety, Arthritis, Depression, Diabetes, HTN - Surgical History Surgical History: - Family History Family History: States: Unknown Family Hx - Home Medications Home Medications: Ambulatory Orders Medication Instructions Recorded Dicyclomine [Bentyl] 20 mg PO Q12 PRN #20 tab 10/07/15 Escitalopram Oxalate [Lexapro] 10/07/15 Gabapentin 1 tab PO BID 10/07/15 Insulin Glargine, Recombina 40 units SQ HS 10/07/15 [Lantus] Insulin Lispro [Humalog] SQ ACHS 10/07/15 Metronidazole [Flagyl] 250 mg PO BID #14 tablet 10/07/15 Ondansetron ODT [Zofran ODT] 4 mg PO Q6H PRN #16 odt 10/07/15 Ibuprofen [Motrin] 400 mg PO Q6 #30 tab 04/28/16 Cephalexin [Keflex] 500 mg PO Q6 #27 capsule 08/18/16 Cyclobenzaprine [Flexeril] 5 mg PO TID #6 tab 04/15/17 Ibuprofen [Motrin] 600 mg PO Q6 #20 tab 04/15/17 Famotidine [Pepcid] 20 mg PO BID #20 tab 08/19/17 Nitrofurantoin Macrocrystals 100 mg PO BID 5 Days cap 08/19/17 [Macrobid] Omeprazole 20 mg PO DAILY #30 capsule. 08/19/17 Ondansetron ODT [Zofran ODT] 4 mg PO Q6 PRN #8 odt 04/09/18 Ciprofloxacin HCl [Cipro] 500 mg PO BID #20 tab 07/24/18 Dicyclomine [Dicyclomine HCl] 10 mg PO Q8 #10 cap 07/24/18 Metronidazole [Flagyl] 500 mg PO BID #20 tablet 07/24/18 Famotidine [Pepcid] 20 mg PO BID #20 tab 08/15/18 - Allergies Allergies/Adverse Reactions: Allergies Allergy/AdvReac Type Severity Reaction Status Date / Time No Known Allergies Allergy Verified 07/24/18 04:28 Review of Systems ROS Statement: Except As Marked, All Systems Reviewed And Found Negative ENT: Positive for: Mouth Swelling (upper mild lip itchiness), Other (mild swelling to the right side) Respiratory: Negative for: Shortness of Breath Physical Exam - Reviewed Nursing Documentation Reviewed: Yes Vital Signs Reviewed: Yes - Physical Exam Appears: Positive for: Well, Non-toxic, No Acute Distress Head Exam: Positive for: ATRAUMATIC, NORMAL INSPECTION, NORMOCEPHALIC Skin: Positive for: Normal Color, Warm, Dry Eye Exam: Positive for: Normal appearance, EOMI, PERRL ENT: Positive for: Other (mild swelling to upper and lower lip, minimal swelling to the right face; no tooth tenderness to percussion and no obvious dental abscess. Airway widely patent. No intraoral swelling.). Negative for: Normal ENT Inspection ( no fluctuance, no enduration, no ecchymosis, no erythema to the right face), Pharyngeal Erythema Neck: Positive for: Normal Cardiovascular/Chest: Positive for: Regular Rate, Rhythm. Negative for: Murmur Respiratory: Positive for: Normal Breath Sounds. Negative for: Stridor, Whee zing Neurologic/Psych: Positive for: Alert, Oriented. Negative for: Motor/Sensory Deficits - ECG O2 Sat by Pulse Oximetry: 99 (RA) Pulse Ox Interpretation: Normal Medical Decision Making Medical Decision Making: Time:15:30 -ED Urine POC -Benadryl 50 mg PO -Prednisone 60mg PO Discussed with patient differentials: allergic reaction given new medication vs angioedema due to Losartan use. Advised to discontinue use of over the counter cold sore medication and Losartan. Patient will followup with PMD for further blood pressure management. Pt. observed here x 1.5 hrs, stable, lip swelling about the same, no worsening, breathing comfortably, tolerating po. Scribe Attestation: Documented by Jade Whittaker , acting as a scribe for Nancie Fletcher. Provider Scribe Attestation: All medical record entries made by the Scribe were at my direction and personally dictated by me. I have reviewed the chart and agree that the record accurately reflects my personal performance of the history, physical exam, medical decision making, and the department course for this patient. I have also personally directed, reviewed, and agree with the discharge instructions and disposition. Disposition - Clinical Impression Clinical Impression: Allergic reaction, Angioedema - Patient ED Disposition Is Patient to be Admitted: No - Disposition Disposition: Routine/Home Disposition Time: 16:30 Condition: STABLE Additional Instructions: discontinue losartan and cold sore ointment. follow up with your pmd in 1-2 days for recheck. return here sooner if worse. Instructions: Angioedema (DC), Drug Allergy Forms: [employer] (Mohawk)
[2018-08-24 16:27] VITALS: BP 130/78; PULSE 80; TEMP 98.2
== END 2018-08-24 16:45 | disposition home or self-care (01) ==
LOC: H.ER 14:44
DX: T78.40XA Allergy, unspecified, initial encounter (principal); T78.3XXA Angioneurotic edema, initial encounter; E11.9 Type 2 diabetes mellitus without complications; F41.9 Anxiety disorder, unspecified; I10 Essential (primary) hypertension; Z79.4 Long term (current) use of insulin

== ENCOUNTER 2018-11-14 04:55 | Emergency (ER) | payer SELFPAY ==
[2018-11-14 05:10] VITALS: TEMP 98.2
[2018-11-14] MEDS ORDERED: Alum-Mag Hydrox-Simethicone Susp (30 mL) PO ONE (05:50)
[2018-11-14 05:54] VITALS: BP 125/84
--- NOTE | 2018-11-14 05:57 | ED PDOC ---
HPI: Chest Pain Time Seen by Provider: 11/14/18 05:10 Chief Complaint (Nursing): Chest Pain Chief Complaint (Provider): Chest Pain History Per: Patient History/Exam Limitations: no limitations Additional Complaint(s): 28 y/o female with history of diabetes and hypertension presents to the ED complaining of chest pain associated with shortness of breath. Patient reports that she woke up at 2 am with mid-sternal chest pain with shortness of breath. Patient describes pain as burning. Denies chills, sweats, or cough. Past Medical History Reviewed: Historical Data, Nursing Documentation, Vital Signs Vital Signs: Last Vital Signs Temp 98.2 F 11/14/18 05:07 Pulse 91 H 11/14/18 05:45 Resp 16 11/14/18 05:07 BP 125/84 11/14/18 05:45 Pulse Ox 99 11/14/18 05:07 - Medical History PMH: Anxiety, Arthritis, Depression, Diabetes, HTN - Surgical History Surgical History: - Family History Family History: States: Unknown Family Hx - Home Medications Home Medications: Ambulatory Orders Medication Instructions Recorded Dicyclomine [Bentyl] 20 mg PO Q12 PRN #20 tab 10/07/15 Escitalopram Oxalate [Lexapro] 10/07/15 Gabapentin 1 tab PO BID 10/07/15 Insulin Glargine, Recombina 40 units SQ HS 10/07/15 [Lantus] Insulin Lispro [Humalog] SQ ACHS 10/07/15 Metronidazole [Flagyl] 250 mg PO BID #14 tablet 10/07/15 Ondansetron ODT [Zofran ODT] 4 mg PO Q6H PRN #16 odt 10/07/15 Ibuprofen [Motrin] 400 mg PO Q6 #30 tab 04/28/16 Cephalexin [Keflex] 500 mg PO Q6 #27 capsule 08/18/16 Cyclobenzaprine [Flexeril] 5 mg PO TID #6 tab 04/15/17 Ibuprofen [Motrin] 600 mg PO Q6 #20 tab 04/15/17 Famotidine [Pepcid] 20 mg PO BID #20 tab 08/19/17 Nitrofurantoin Macrocrystals 100 mg PO BID 5 Days cap 08/19/17 [Macrobid] Omeprazole 20 mg PO DAILY #30 capsule. 08/19/17 Ondansetron ODT [Zofran ODT] 4 mg PO Q6 PRN #8 odt 04/09/18 Ciprofloxacin HCl [Cipro] 500 mg PO BID #20 tab 07/24/18 Dicyclomine [Dicyclomine HCl] 10 mg PO Q8 #10 cap 07/24/18 Metronidazole [Flagyl] 500 mg PO BID #20 tablet 07/24/18 Famotidine [Pepcid] 20 mg PO BID #20 tab 08/15/18 Prednisone 50 mg PO DAILY #5 tablet 08/24/18 Famotidine [Pepcid] 20 mg PO BID #20 tab 11/14/18 Omeprazole 20 mg PO DAILY #30 capsule. 11/14/18 - Allergies Allergies/Adverse Reactions: Allergies Allergy/AdvReac Type Severity Reaction Status Date / Time No Known Allergies Allergy Verified 07/24/18 04:28 Review of Systems ROS Statement: Except As Marked, All Systems Reviewed And Found Negative Constitutional: Negative for: Chills, Sweats Cardiovascular: Positive for: Chest Pain Respiratory: Positive for: Shortness of Breath. Negative for: Cough Physical Exam - Reviewed Nursing Documentation Reviewed: Yes Vital Signs Reviewed: Yes - Physical Exam Appears: Positive for: Well, Non-toxic, No Acute Distress Head Exam: Positive for: ATRAUMATIC, NORMAL INSPECTION, NORMOCEPHALIC Skin: Positive for: Normal Color, Warm, DRY Eye Exam: Positive for: EOMI, Normal appearance, PERRL ENT: Positive for: Normal ENT Inspection Neck: Positive for: Normal, Painless ROM Cardiovascular/Chest: Positive for: Regular Rate, Rhythm. Negative for: Murmur Respiratory: Positive for: Normal Breath Sounds. Negative for: Respiratory Distress Gastrointestinal/Abdominal: Positive for: Normal Exam, Soft. Negative for: Tenderness Back: Positive for: Normal Inspection Extremity: Positive for: Normal ROM. Negative for: Pedal Edema, Deformity Neurological/Psych: Positive for: Awake, Alert, Normal Tone. Negative for: Motor/Sensory Deficits - ECG ECG Rhythm: Positive for: Normal QRS, Normal ST Segment, Sinus Rhythm. Negative for: ST/T Changes Rate: 93 O2 Sat by Pulse Oximetry: 99 (RA) Pulse Ox Interpretation: Normal Medical Decision Making Medical Decision Making: Time: 05:50 A/P: Non-cardiac chest pain. Likely gastritis. Will get GI cocktail and reevaluate. * Lidocaine * Maalox * Pepcid 700 Patient is feeling much improved Will discharge patient with PPI and pepcid Advised her to follwup with Dr. Noyola Will give referral for Dr. Mayes, recommend endoscopy as outpatient Well appearing upon discharge Scribe Attestation: Documented by Antione Salazar, acting as a scribe Jakob Aceves MD. Provider Scribe Attestation: All medical record entries made by the Scribe were at my direction and personally dictated by me. I have reviewed the chart and agree that the record accurately reflects my personal performance of the history, physical exam, medical decision making, and the department course for this patient. I have also personally directed, reviewed, and agree with the discharge instructions and disposition. Disposition - Clinical Impression Clinical Impression: Gastritis - Patient ED Disposition Is Patient to be Admitted: No - Disposition Referrals: Yoko Noyola APN [Family Provider] - Renny Mayes MD, PhD [Staff Provider] - Disposition: Routine/Home Disposition Time: 07:07 Condition: IMPROVED Prescriptions: Famotidine [Pepcid] 20 mg PO BID #20 tab Omeprazole 20 mg PO DAILY #30 capsule. Instructions: Gastritis Forms: [employer] (Malian)
[2018-11-14 06:03] VITALS: RESP 14
[2018-11-14 07:08] VITALS: PULSE 93; O2SAT 99
--- NOTE | 2018-11-14 08:24 | CARD ---
APPROVED REPORT Date of service: 11/14/2018 EKG Measurement Heart [id number] <Conclusion> Normal sinus rhythm Normal ECG
== END 2018-11-14 07:23 | disposition home or self-care (01) ==
LOC: H.ER 04:55
DX: K29.70 Gastritis, unspecified, without bleeding (principal); E11.9 Type 2 diabetes mellitus without complications; Z86.59 Personal history of other mental and behavioral disorders; I10 Essential (primary) hypertension; R07.89 Other chest pain; Z79.4 Long term (current) use of insulin; Z79.899 Other long term (current) drug therapy

== ENCOUNTER 2018-12-27 01:02 | Emergency (ER) | payer MEDICAID ==
[2018-12-27 01:40] VITALS: O2SAT 98
--- NOTE | 2018-12-27 02:18 | ED PDOC ---
HPI: General Adult Time Seen by Provider: 12/27/18 02:15 Chief Complaint (Nursing): Breast Problem Chief Complaint (Provider): LEFT BREAST PAIN/ History Per: Patient (28 Y/O FEMALE HERE WITH LEFT BREAST PAIN ASSOCIATED WITH BUMP NOTED ON BREAST. PATIENT NOTED THIS TODAY. NOTES ADDITIONAL BURNING SENSATION IN ARMS NOTED WHEN AWAKENING. HAS NO FAMILY H/O BREAST CA. NOTES NAUSEA TODAY. NOTES ONE EPISODE OF DIARRHEA TODAY AM.) Past Medical History Reviewed: Historical Data, Nursing Documentation, Vital Signs Vital Signs: Last Vital Signs Temp 98.3 F 12/27/18 01:24 Pulse 124 H 12/27/18 01:24 Resp 17 12/27/18 01:24 BP 154/99 H 12/27/18 01:24 Pulse Ox 98 12/27/18 01:24 Primary Care Provider: Michael Rahman - Medical History PMH: Anxiety, Arthritis, Depression, Diabetes, HTN - Surgical History Surgical History: - Family History Family History: States: Unknown Family Hx - Home Medications Home Medications: Ambulatory Orders Medication Instructions Recorded Dicyclomine [Bentyl] 20 mg PO Q12 PRN #20 tab 10/07/15 Escitalopram Oxalate [Lexapro] 10/07/15 Gabapentin 1 tab PO BID 10/07/15 Insulin Glargine, Recombina 40 units SQ HS 10/07/15 [Lantus] Insulin Lispro [Humalog] SQ ACHS 10/07/15 Metronidazole [Flagyl] 250 mg PO BID #14 tablet 10/07/15 Ondansetron ODT [Zofran ODT] 4 mg PO Q6H PRN #16 odt 10/07/15 Ibuprofen [Motrin] 400 mg PO Q6 #30 tab 04/28/16 Cephalexin [Keflex] 500 mg PO Q6 #27 capsule 08/18/16 Cyclobenzaprine [Flexeril] 5 mg PO TID #6 tab 04/15/17 Ibuprofen [Motrin] 600 mg PO Q6 #20 tab 04/15/17 Famotidine [Pepcid] 20 mg PO BID #20 tab 08/19/17 Nitrofurantoin Macrocrystals 100 mg PO BID 5 Days cap 08/19/17 [Macrobid] Omeprazole 20 mg PO DAILY #30 capsule. 08/19/17 Ondansetron ODT [Zofran ODT] 4 mg PO Q6 PRN #8 odt 04/09/18 Ciprofloxacin HCl [Cipro] 500 mg PO BID #20 tab 07/24/18 Dicyclomine [Dicyclomine HCl] 10 mg PO Q8 #10 cap 07/24/18 Metronidazole [Flagyl] 500 mg PO BID #20 tablet 07/24/18 Famotidine [Pepcid] 20 mg PO BID #20 tab 08/15/18 Prednisone 50 mg PO DAILY #5 tablet 08/24/18 Famotidine [Pepcid] 20 mg PO BID #20 tab 11/14/18 Omeprazole 20 mg PO DAILY #30 capsule. 11/14/18 Ibuprofen [Motrin] 600 mg PO Q8 PRN #21 tab 12/27/18 Ranitidine HCl [Zantac 75] 75 mg PO BID PRN #6 tablet 12/27/18 - Allergies Allergies/Adverse Reactions: Allergies Allergy/AdvReac Type Severity Reaction Status Date / Time No Known Allergies Allergy Verified 07/24/18 04:28 Review of Systems ROS Statement: Except As Marked, All Systems Reviewed And Found Negative Physical Exam - Reviewed Nursing Documentation Reviewed: Yes Vital Signs Reviewed: Yes - Physical Exam Appears: Positive for: Well, Non-toxic, No Acute Distress Head Exam: Positive for: ATRAUMATIC, NORMAL INSPECTION, NORMOCEPHALIC Skin: Positive for: Normal Color, Warm, DRY Eye Exam: Positive for: EOMI, Normal appearance, PERRL ENT: Positive for: Normal ENT Inspection Neck: Positive for: Normal, Painless ROM Cardiovascular/Chest: Positive for: Regular Rate, Rhythm, Other (LEFT BREAST: (+) CYST NOTED. NO ABSCESS) Respiratory: Positive for: CNT, Normal Breath Sounds Gastrointestinal/Abdominal: Positive for: Normal Exam, Soft Back: Positive for: Normal Inspection Extremity: Positive for: Normal ROM Neurological/Psych: Positive for: Awake, Alert, Normal Tone - ECG O2 Sat by Pulse Oximetry: 98 - Progress ED Course And Treament: UPT: NEGATIVE ZOFRAN 4MG ODT X 1 DOSE REPEAT HEART RATE 98 Disposition - Clinical Impression Clinical Impression: Cyst of breast - Patient ED Disposition Is Patient to be Admitted: No - Disposition [facility] Disposition: Routine/Home Disposition Time: 02:40 Condition: FAIR Prescriptions: Ibuprofen [Motrin] 600 mg PO Q8 PRN #21 tab PRN Reason: Pain, Moderate (4-7) Ranitidine HCl [Zantac 75] 75 mg PO BID PRN #6 tablet PRN Reason: Diarrhea Instructions: Gastritis (DC), Common Breast Problems
[2018-12-27 02:46] VITALS: BP 133/89; PULSE 96; RESP 15; TEMP 98.5
== END 2018-12-27 02:47 | disposition home or self-care (01) ==
LOC: H.ER 01:02
DX: N60.02 Solitary cyst of left breast (principal); E11.9 Type 2 diabetes mellitus without complications; F41.9 Anxiety disorder, unspecified; I10 Essential (primary) hypertension; Z79.4 Long term (current) use of insulin